=== PATIENT | male | born 1980 | race Caucasian/White ===

== ENCOUNTER 2021-11-04 04:17 | Emergency (ER) | payer MEDICAID, SELFPAY ==
[2021-11-04 04:44] VITALS: BP 127/74; PULSE 105; RESP 22; TEMP 36.4; O2SAT 97; BMI 43.9
--- NOTE | 2021-11-04 05:18 | ED_ITS ---
HPI - General Adult General Chief complaint: Unspecified Complaint, Adult Stated complaint: Body aches Time Seen by Provider: 11/04/21 04:41 History of Present Illness HPI narrative: 41-year-old man presenting to the emergency department now with 2 days of body aches. He checked for COVID today with a home test was positive and is here for verification. He is interested in treatment if possible. Has not been vaccinated. He has not measured a fever. No diarrhea no vomiting. Some headache. Not really short of breath. Primary symptom is bad body aches. Has not tried treatment really otherwise. Denies past medical and does not take any medications. Related Data Previous Rx's Medication Instructions Recorded nirmatrelvir 300 mg (150 mg See Rx Instructions PO .COMPLEX 11/04/21 x2)-ritonavir 100 mg tablet,dose #30 ea pack(EUA) (Paxlovid) Allergies Allergy/AdvReac Type Severity Reaction Status Date / Time No Known Drug Allergies Allergy Verified 11/04/21 04:47 Review of Systems Status of ROS: Reports: 6 or more systems reviewed and unremarkable except as noted in History and below [facility] Medical History No significant past medical history Surgical History (Updated 11/04/21 @ 04:54 by Estuardo Hewitt RN) No significant past surgical history Social History Smoking Status: Current every day smoker What tobacco products do you use: cigarettes Do you use any of these nicotine containing products: None How often do you have a drink containing alcohol: never How often do you have six or more drinks on one occasion: Never AUDIT-C Alcohol total score: 0 Non-prescribed substance use: denies use Exam Narrative: Exam Narrative: Congested, pleasant, shorter stature, overweight. Breathing easily. Transitions as if uncomfortable. Oropharynx is moist with mild erythema posteriorly. Lungs are clear. Abdomen is overweight soft nontender Cardiovascular elevated rate to tachycardic. No murmur appreciated. Moving all extremities without difficulty. Well perfused peripherally Skin is warm and generally dry little diaphoretic around the neck and head though Const: Vital Signs, click to edit/add: Vital Signs - 24 hr 11/04/21 04:44 Temperature 97.6 F Pulse Rate [Right Pulse Oximeter] 105 H Respiratory Rate 22 Blood Pressure [Le ft Upper Arm] 127/74 Pulse Oximetry 97 Oxygen Delivery Me thod Room Air Documenting provider has reviewed patient's vital signs: yes Course Course Hospital Course: Vitally well other than elevated heart rate. Vital Signs Vital signs: Initial Vital Signs Temperature 97.6 F 11/04/21 04:44 Temperature Source Temporal Artery Scan 11/04/21 04:44 Pulse Rate 105 H 11/04/21 04:44 Respiratory Rate 22 11/04/21 04:44 Blood Pressure 127/74 11/04/21 04:44 Blood Pressure Mean 91 11/04/21 04:44 Blood Pressure Position Sitting 11/04/21 04:44 Pulse Oximetry 97 11/04/21 04:44 Oxygen Delivery Method 11/04/21 04:44 Vital Signs Temperature 97.6 F 11/04/21 04:44 Pulse Rate 105 H 11/04/21 04:44 Respiratory Rate 22 11/04/21 04:44 Blood Pressure 127/74 11/04/21 04:44 Pulse Oximetry 97 11/04/21 04:44 Oxygen Delivery Method 11/04/21 04:44 Temperature 97.6 F 11/04/21 05:30 Pulse Rate 102 H 11/04/21 05:30 Respiratory Rate 22 11/04/21 05:30 Blood Pressure 120/70 11/04/21 05:30 Pulse Oximetry 97 11/04/21 05:30 Oxygen Delivery Method 11/04/21 05:30 Medical Decision Making MDM Narrative Medical decision making narrative: Collecting point of care creatinine. This is 0.09 and WNL. Candidate for Paxlovid which he would like to get. Lab Data Labs: Lab Results 11/04/21 Range/Units 04:40 SARS-CoV-2 (PCR) POSITIVE SARS-CoV-2 A (Negative) Discharge Plan Discharge Clinical Impression: Positive self-administered antigen test for COVID-19, Myalgia Patient Disposition: Home, Self-Care Condition: Stable Additional Instructions: Stay well-hydrated You might reach out to the [place] department of [facility] to see whether not you are a candidate for antibody infusions. See handout with contact information. Quarantine yourself for 10 days from onset of your symptoms. Can take up to 800 mg of ibuprofen or up to 1000 mg of acetaminophen per dose. Alternative to the ibuprofen is up to 500 mg of naproxen 2 times daily. These might help your aches and pains. If you are having difficulty breathing, get yourself a home oxygen monitor and return to the emergency department for oxygen saturations of 90% or less. I would encourage you to be vaccinated for COVID after 6 weeks or once you're feeling better in a few weeks. Prescriptions: New Paxlovid (EUA) 300 mg (150 mg x 2)-100 mg tablets,dose pack See Rx Instructions .ROUTE .COMPLEX Qty: 30 0RF Rx Instructions: take TWO 150 mg tablets of nirmatrelvir with ONE 100 mg tablet of ritonavir twice daily for 5 days Stand Alone Forms: [employer] Info Instructions
[2021-11-04 05:30] VITALS: BP 120/70; BP 127/74; PULSE 102; PULSE 105; RESP 22; TEMP 36.4; O2SAT 97
[2021-11-04 05:59] LABS: SARS PCR* POSITIVE SARS-CoV-2 (Negative)
== END 2021-11-04 05:31 | disposition home or self-care (01) ==
PROVIDERS: Emergency Provider Family Medicine
DX: U07.1 COVID-19 (principal)
CPT/HCPCS: 87635; 99283